=== PATIENT | male | born 1970 | race American Indian/Alaskan Native ===

== ENCOUNTER 2021-11-04 07:51 | Outpatient (CLI) | payer OTHER ==
--- NOTE | 2021-11-04 16:47 | Ultrasound Report ---
BILATERAL DIGITAL DIAGNOSTIC MAMMOGRAM WITH CAD 11/04/2021 LEFT LIMITED BREAST ULTRASOUND INDICATION: Male patient reports a palpable lump in the left breast for 4 months. None TECHNIQUE: Digital bilateral mammographic imaging was performed. Limited ultrasound was performed. T his examination was interpreted with the benefit of Computer-Aided Detection (CAD) analysis. COMPARISON: None FINDINGS: Breast Density: There are scattered areas of fibroglandular density. MAMMOGRAPHIC FINDINGS: There is mild right-sided gynecomastia and moderate left-sided gynecomastia. P ost-surgical changes are noted in the left breast from previous benign biopsy. The patient's area of palpable concern as marked with a skin BB corresponds to a normal appearing 8 m m intramammary lymph node. No suspicious mass or microcalcifications identified in either breast. ULTRASOUND FINDINGS: Targeted ultrasound evaluation was performed of the area of interest. Sonograp hic evaluation of the left breast at the 1:00 position demonstrates a normal-appearing oval intramamm betsey lymph node measuring 1.0 x 0.4 cm. This lymph node demonstrates a thin cortex and preserved fatty hilum. No suspicious solid mass is visualized. IMPRESSION: 1. The patient's area of palpable concern in the left breast corresponds to an intramammary lymph no de with a normal morphology. Therefore, clinical correlation is needed. 2. Bilateral gynecomastia, left greater than right. Follow up recommendation: Clinical exam BI-RADS Category 2: BENIGN. A "normal" or negative report should not discourage follow up or biopsy of a clinically significant f inding. A written summary of these findings will be mailed to the patient. The patient will be entered into a mammography reporting system which will generate a reminder letter for the patient's next appointmen t at the appropriate interval. According to the [employer], yearly mammograms are recommended starting at age 40 and continuing as long as a woman is in good health. Breast MRI is recommended for women with an graciela roximately 20-25% or greater lifetime risk of breast cancer, including women with a strong family his tory of breast or ovarian cancer and women who have been treated for Hodgkin's disease. Signer Name: Bebe Ashraf MD Signed: 11/04/2021 4:42 PM Workstation Name: [id number]
== END 2021-11-04 07:52 | disposition home or self-care (01) ==
LOC: MAMMO 07:51
PROVIDERS: ATTEND Family Medicine
DX: N63.0 Unspecified lump in unspecified breast (principal)
CPT/HCPCS: 77066